=== PATIENT | female | born 1995 | race Caucasian/White ===

== ENCOUNTER 2018-07-04 16:14 | Emergency (ER) | payer OTHER ==
[2018-07-04 16:53] VITALS: BP 129/68
--- NOTE | 2018-07-04 17:06 | ER Document Report ---
ED Medical Screen (RME) - General Chief Complaint: Vag Bleeding, +preg <12wks Stated Complaint: VAGINAL BLEEDING Time Seen by Provider: 07/04/18 16:55 Mode of Arrival: Ambulatory Information source: Patient, Relative TRAVEL OUTSIDE OF THE [place] IN LAST 30 DAYS: No - HPI Patient complains to provider of: vaginal bleeding Onset: Other - This 22-year-old female with a history of a of unknown location who presents for evaluation of some cramping and bleeding which happened today. She has been followed by her beater out after a positive test at which time she underwent ultrasound which demonstrated a sac without any developing embryo she subsequently had an hCG which was trended over 1 week's time raising only modestly since that time she has had intermittent cramping and vaginal spotting. Her beater out offered her methotrexate as well as Cytotec to ensure that if she has a ectopic it is not progressing and to help her body clear what he is convinced is an abnormal . Currently she denies any other symptoms at this time. - Related Data Allergies/Adverse Reactions: No Known Allergies Allergy (Verified 07/04/18 16:21) Past Medical History - General Information source: Patient - Social History Cigarette use (# per day): No Chew tobacco use (# tins/day): No Frequency of alcohol use: None Review of Systems - Review of Systems -: Yes All other systems reviewed and negative Physical Exam - Vital signs Vitals: Temp Pulse Resp BP Pulse Ox 98.9 F 82 12 129/68 H 100 07/04/18 16:37 07/04/18 16:37 07/04/18 16:37 07/04/18 16:37 07/04/18 16:37 - General General appearance: Appears well In distress: None - HEENT Head: Normocephalic Eyes: Normal Conjunctiva: Normal - Respiratory Respiratory status: No respiratory distress Chest status: Nontender Breath sounds: Normal Chest palpation: Normal - Cardiovascular Rhythm: Regular Heart sounds: Normal auscultation Murmur: No - Abdominal Inspection: Normal Distension: No distension Tenderness: Nontender - Back Back: Normal - Extremities General upper extremity: Normal inspection General lower extremity: Normal inspection - Neurological Neuro grossly intact: Yes Cognition: Normal Orientation: AAOx4 [place] Coma Scale Eye Opening: Spontaneous [place] Coma Scale Verbal: Oriented [place] Coma Scale Motor: Obeys Commands [place] Coma Scale Total: 15 - Psychological Associated symptoms: Normal affect Course - Re-evaluation Re-evalutation: 07/04/18 17:54 This 22-year-old female presents with pelvic cramping and vaginal spotting. She has been being followed for of unknown location, she has had a trended hCG quant which modestly increased during the initial weeks of her . She is being followed by her beater out closely for this and has undergone ultrasound multiple times for possible developing ectopic . She had some cramping last night which prompted her to present to an outside emergency department as she [place] [facility] [place] [facility], at that time she underwent transvaginal ultrasound and a repeat check of her quantitative hCG. The ultrasound demonstrated a sac without any obvious activity and an empty uterus otherwise, her hCG was essentially static from her previous. She was subsequently sent home after declining methotrexate and Cytotec. On presentation the patient is hemodynamically stable with a reassuring abdominal exam and now no active bleeding. Given that this 22-year-old female has been offered methotrexate and Cytotec by her beater out will call. Contacted her primary beater out at [phone]. In consultation with her primary beater out plan is to offer this patient treatment with methotrexate or Cytotec. I spoke to Ms. Tirado as well as her spouse and mother at length about her options at this time, it sounds as if she likely has an incompletely finished miscarriage at this time she likely does not have a normally developing . They have been unable to locate an ectopic though she has been ultrasounded more than once. Because of the uncertainty related to her care at this time she and I both agreed that it was reasonable for her to undergo evaluation on Friday in her beater out's office's for consideration of possible abortive therapy or methotrexate use. Patient subsequently opted for discharge, she was given return precautions and encouraged follow-up as we have discussed. They were in agreement with current course of action including her mother as well as her spouse. 07/04/18 20:54 - Vital Signs Vital signs: Temp Pulse Resp BP Pulse Ox 98.9 F 82 12 129/68 H 100 07/04/18 16:37 07/04/18 16:37 07/04/18 16:37 07/04/18 16:37 07/04/18 16:37 Doctor's Discharge - Discharge Clinical Impression: Abdominal cramping, INCOMPLETE MISCARRIAGE Condition: Stable Disposition: HOME, SELF-CARE Instructions: Ectopic Precaution (OM), Threatened Miscarriage (OM) Additional Instructions: YOu were seen today in the emergency department for your cramping as well as vaginal bleeding which is likely result of a incomplete miscarriage. Your beater out offered potentially to use methotrexate as well as Cytotec to ensure resolution of the miscarriage and potential ectopic . He has agreed to see you this week for further follow-up related to this as you decided not to use the medication at this time. Return to the emergency department for worsening cramping lightheadedness fainting inability to eat or drink or other symptoms.
== END 2018-07-04 17:46 | disposition home or self-care (01) ==
LOC: ER 16:14
DX: O03.4 Incomplete spontaneous abortion without complication (principal); R10.84 Generalized abdominal pain
CPT/HCPCS: 99284